=== PATIENT | female | born 1980 | race Hispanic/Latino ===

== ENCOUNTER 2021-05-31 08:51 | Emergency (ER) | payer OTHER ==
[~2021-05-31] VITALS: Ht 154.9 cm; Wt 81.6 kg
[2021-05-31] MEDS ORDERED: ISENTRESS400 MG PO (09:11)
[2021-05-31] MEDS ORDERED: TRUVADA 200 MG1 EACH PO (09:12)
== END 2021-05-31 09:35 | disposition home or self-care (01) ==
LOC: ER 09:11
DX: S60.011A Contusion of right thumb without damage to nail, initial encounter (principal); W46.1XXA Contact with contaminated hypodermic needle, initial encounter; Y92.89 Other specified places as the place of occurrence of the external cause
CPT/HCPCS: 99283